=== PATIENT | female | born 1985 | race Caucasian/White ===

== ENCOUNTER → 2018-11-12 | Outpatient (CLI) | payer OTHER ==
[~2018-11-12] MED LIST: ALBU1.25 NEB; ALBU18HF INH; ESCI5TAB7 PO; IBUP200T49 PO; LANS15CA60 PO; MONT10TA6 PO; OXYC-302 PO; PREN1TAB60 PO
[2018-11-12 09:40] LABS: MICROSCOPIC NOT IND
[2018-11-12 09:40] LABS: BASOPHILS # (AUTO) 0.04 x10^3/uL (0-0.1); BASOPHILS % (AUTO) 0 % (0-1); EOSINOPHILS # (AUTO) 0.18 x10^3/uL (0-0.4); EOSINOPHILS % (AUTO) 2 % (1-7); LYMPHOCYTES # (AUTO) 2.67 x10^3/uL (1-3.4); LYMPHOCYTES % (AUTO) 28 % (22-44); MD NO; MEAN CORPUSCULAR HEMOGLOBIN 32.4 pg (27.0-34.8); MEAN CORPUSCULAR HGB CONC 34.6 g/dL (32.4-35.8); MEAN CORPUSCULAR VOLUME 93.7 fL (80-100); MEAN PLATELET VOLUME 7.4 fL (7.4-10.4); MONOCYTES % (AUTO) 6 % (2-9); NEUTROPHILS # (AUTO) 6.21 x10^3/uL (1.8-6.8); NEUTROPHILS % (AUTO) 64 % (42-75); PLATELET COUNT 348 x10^3/uL (130-400); RED CELL DISTRIBUTION WIDTH 13.4 % (9.6-15.2)
[2018-11-12 09:42] LABS: CULTURE INDICATED? NO
[2018-11-12 09:52] LABS: ALBUMIN 4.5 g/dL (3.4-5.0); ANION GAP 4 mmol/L (5-15); CALCIUM 9.1 mg/dL (8.5-10.1); CHLORIDE 109 mmol/L (98-107)
[2018-11-12 09:58] LABS: ALANINE AMINOTRANSFERASE 22 U/L (12-78); ALKALINE PHOSPHATASE 54 U/L (45-117); BILIRUBIN,TOTAL 0.8 mg/dL (0.2-1.0); CREATININE 0.87 mg/dL (0.55-1.02); TOTAL PROTEIN 7.8 g/dL (6.4-8.2)
== END | disposition home or self-care (01) ==
LOC: STAR 08:53
PROVIDERS: ATTEND Obstetrics & Gynecology Gynecology
DX: Z01.818 Encounter for other preprocedural examination (principal); N93.9 Abnormal uterine and vaginal bleeding, unspecified; N94.6 Dysmenorrhea, unspecified
CPT/HCPCS: 36415; 80053; 81003; 84702; 85025

== ENCOUNTER 2018-11-25 05:50 | Day surgery (SDC) | payer OTHER ==
[~2018-11-25] VITALS: Ht 165.1 cm; Wt 57.2 kg
[2018-11-25] MEDS ORDERED: LACTATED RINGERS 1,000 ML IV SCH (06:14)
[2018-11-25] MEDS ORDERED: MOME13HF2 INH (06:18)
[2018-11-25 06:21] VITALS: BP 114/78
[2018-11-25] MEDS ORDERED: BUPIVACAINE/PF 0.25% ONE (06:43)
[2018-11-25] MEDS ORDERED: LIDOCAINE 1%-EPI 1:100K, 50ML ONE (06:44)
[2018-11-25] MEDS ORDERED: FLUORESCEIN SODIUM 500 MG/5 ML ONE (06:44)
[2018-11-25] MEDS ORDERED: FENTANYL PF 250 MCG/5ML ONE ×2 (06:45→08:29)
[2018-11-25] MEDS ORDERED: MIDAZOLAM 1 MG/ML, 2ML ONE (06:45)
[2018-11-25 06:47] LABS: HCG UR SG 1.024 (1.003-1.030)
[2018-11-25] MEDS ORDERED: GABAPENTIN 300 MG CAPSULE PO ONE (07:00)
[2018-11-25] MEDS ORDERED: ACETAMINOPHEN 500 MG TABLET PO ONE (07:00)
[2018-11-25] MEDS ORDERED: SCOPOLAMINE PATCH, 1.5MG PATCH.TD72 TD ONE (07:00)
[2018-11-25] MEDS ORDERED: HALOPERIDOL 5 MG/ML IV PRN (07:30)
[2018-11-25] MEDS ORDERED: PROMETHAZINE 12.5 MG SUPP PR PRN (07:30)
[2018-11-25] MEDS ORDERED: PROMETHAZINE 25 MG SUPP PR PRN (07:30)
[2018-11-25] MEDS ORDERED: LABETALOL 5MG/ML, 20ML IV PRN (07:30)
[2018-11-25] MEDS ORDERED: hydrALAzine 20 MG/ML, 1ML IV PRN (07:30)
[2018-11-25] MEDS ORDERED: HYDROmorphone 2 MG/ML, 1ML IVPush PRN (07:30)
[2018-11-25] MEDS ORDERED: ONDANSETRON 2MG/ML, 2ML IV PRN (07:30)
[2018-11-25] MEDS ORDERED: ALBUTEROL/IPRATROPIUM 2.5MG/0.5MG, 3 ML NPPB PRN (07:30)
[2018-11-25] MEDS ORDERED: ALBUTEROL SULFATE 2.5 MG/3 ML NPPB PRN (07:30)
[2018-11-25] MEDS ORDERED: ONDANSETRON ODT 8 MG PO PRN (07:30)
[2018-11-25] MEDS ORDERED: PROMETHAZINE 25 MG/ML, 1ML IM PRN ×2 (07:30)
[2018-11-25] MEDS ORDERED: PROMETHAZINE 25 MG/ML, 1ML IV PRN (07:30)
[2018-11-25] MEDS ORDERED: OXYcodone 5 MG/5 ML ORAL.SOL UDC PO PRN (07:30)
[2018-11-25] MEDS ORDERED: MORPHINE SULFATE 4 MG/ML, 1ML IVPush PRN (07:30)
[2018-11-25] MEDS ORDERED: ONDANSETRON 2MG/ML, 2ML ONE (07:37)
[2018-11-25] MEDS ORDERED: GLYCOPYRROLATE 0.2MG/1ML, 5ML ONE (08:29)
[2018-11-25] MEDS ORDERED: DEXAMETHASONE 4 MG/ML, 1ML ONE (08:29)
[2018-11-25] MEDS ORDERED: CEFAZOLIN 1,000 MG ONE (08:29)
[2018-11-25] MEDS ORDERED: PROPOFOL 10 MG/ML, 20ML ONE (08:29)
[2018-11-25] MEDS ORDERED: ROCURONIUM 10MG/ML,5ML ONE (08:29)
[2018-11-25] MEDS ORDERED: NEOSTIGMINE 1 MG/ML, 10ML ONE (08:29)
[2018-11-25] MEDS ORDERED: KETOROLAC 30 MG/1 ML ONE (09:15)
[2018-11-25] MEDS ORDERED: FENTANYL PF 100 MCG/2ML ONE (09:42)
[2018-11-25] MEDS ORDERED: OXYcodone 5 MG/5 ML ORAL.SOL UDC ONE (09:43)
[2018-11-25] MEDS ORDERED: MEPERIDINE/PF 25MG/ML,1ML ONE (09:43)
[2018-11-25] MEDS: MEPERIDINE/PF 25MG/0.5ML IVPush PRN ×2 (09:45→10:00)
[2018-11-25] MEDS: FENTANYL PF 100 MCG/2ML IV PRN ×2 (10:10→10:17)
[2018-11-25] MEDS ORDERED: ONDANSETRON ODT 4 MG ONE (13:11)
[2018-11-25] MEDS ORDERED: OXYcodone/APAP 5/325MG TABLET PO PRN (15:00)
== END 2018-11-25 15:45 | disposition home or self-care (01) ==
LOC: OUT 05:50
PROVIDERS: ATTEND Obstetrics & Gynecology Gynecology
DX: N87.9 Dysplasia of cervix uteri, unspecified (principal); I10 Essential (primary) hypertension; E78.00 Pure hypercholesterolemia, unspecified; J45.909 Unspecified asthma, uncomplicated; Z79.899 Other long term (current) drug therapy; Z98.51 Tubal ligation status; Z98.890 Other specified postprocedural states
CPT/HCPCS: 36415; 58552; 81025; 86850; 86900; 88307; J0690; J1100; J1885; J2175; J2250; J2405; J2704; J2710; J3010; J3490; J7120